=== PATIENT | male | born 1950 | race African-American/Black ===

== ENCOUNTER 2020-10-18 16:33 | Emergency (ER) | payer MEDICARE, OTHER ==
[~2020-10-18] VITALS: Ht 170.2 cm; Wt 127.0 kg
[2020-10-18] MEDS ORDERED: LEVOFLOXACIN 500MG TABLET PO ONE (17:15)
[2020-10-18 20:04] LABS: CLARITY URINE CLEAR (CLEAR); COLOR URINE YELLOW (YELLOW); KETONES URINE NEGATIVE (NEGATIVE); LEUKOCYTE ESTERASE URINE TRACE (NEGATIVE); NITRITE URINE NEGATIVE (NEGATIVE); OCCULT BLOOD URINE TRACE (NEGATIVE); PROTEIN URINE 1+ (NEGATIVE); SPECIFIC GRAVITY URINE 1.016 (1.005-1.030)
[2020-10-18 20:37] LABS: CHLORIDE 106 mEq/L (98-107)
[2020-10-18] MEDS ORDERED: CIPR500T5 MT (21:02)
[2020-10-18 21:28] VITALS: BP 149/69
== END 2020-10-18 21:32 | disposition home or self-care (01) ==
LOC: ER 16:33
DX: T83.098A Other mechanical complication of other urinary catheter, initial encounter (principal); N17.9 Acute kidney failure, unspecified; R33.9 Retention of urine, unspecified; R03.0 Elevated blood-pressure reading, without diagnosis of hypertension; Y73.8 Miscellaneous gastroenterology and urology devices associated with adverse incidents, not elsewhere classified; Y92.89 Other specified places as the place of occurrence of the external cause
CPT/HCPCS: 36415; 80053; 81003; 99283

== ENCOUNTER 2020-10-28 16:41 | Emergency (ER) | payer MEDICARE ==
[~2020-10-28] VITALS: Ht 170.2 cm; Wt 127.0 kg
[~2020-10-28 16:41] MED LIST: CIPR500T5 MT
[2020-10-28 21:30] VITALS: BP 146/86
== END 2020-10-28 22:09 | disposition home or self-care (01) ==
LOC: ER 16:41
DX: Z46.6 Encounter for fitting and adjustment of urinary device (principal); R10.30 Lower abdominal pain, unspecified; R33.9 Retention of urine, unspecified
CPT/HCPCS: 99281

== ENCOUNTER 2020-11-12 19:04 | Emergency (ER) | payer MEDICARE ==
[~2020-11-12] VITALS: Ht 180.3 cm; Wt 118.0 kg
[2020-11-12 22:20] VITALS: BP 135/85
== END 2020-11-12 22:58 | disposition home or self-care (01) ==
LOC: ER 19:04
DX: R33.9 Retention of urine, unspecified (principal); J44.1 Chronic obstructive pulmonary disease with (acute) exacerbation; I10 Essential (primary) hypertension; Z98.890 Other specified postprocedural states
CPT/HCPCS: 51702; 99284; A4315